=== PATIENT | male | born 1995 | race Caucasian/White ===

== ENCOUNTER → 2020-07-14 | Outpatient (CLI) | payer BC | LOC: OPSV 09:00 | DX: Z23 Encounter for immunization (principal) | CPT/HCPCS: 90746; 96372 ==

== ENCOUNTER → 2020-10-12 | Outpatient (CLI) | payer BC ==
[~2020-10-12] VITALS: Ht 177.8 cm; Wt 68.0 kg
== END ==
LOC: OPSV 09:00
DX: Z23 Encounter for immunization (principal)
CPT/HCPCS: 90746; 96372

== ENCOUNTER → 2021-01-11 | Outpatient (CLI) | payer BC | LOC: KOH-I 10:21 | DX: M54.12 Radiculopathy, cervical region (principal); M54.16 Radiculopathy, lumbar region | CPT/HCPCS: 72040; 72100 ==

== ENCOUNTER → 2021-01-30 | Outpatient (CLI) | payer BC | LOC: KOH-I 01-23 14:30 | DX: R20.0 Anesthesia of skin (principal); R29.2 Abnormal reflex; R20.2 Paresthesia of skin | CPT/HCPCS: 70551 ==